=== PATIENT | female | born 1990 | race African-American/Black ===

== ENCOUNTER 2017-11-11 21:19 | Observation (INO) | payer MEDICAID ==
[~2017-11-11] VITALS: Ht 160 cm; Wt 93.0 kg
[2017-11-11] MEDS ORDERED: ACET-2708 MT (22:04)
[2017-11-11] MEDS ORDERED: PENI500T PO (22:04)
== END 2017-11-11 23:00 | disposition home or self-care (01) ==
LOC: L&D 21:19
PROVIDERS: ADMIT Obstetrics & Gynecology; ATTEND Obstetrics & Gynecology
DX: O62.9 Abnormality of forces of labor, unspecified (principal); Z3A.39 39 weeks gestation of pregnancy
CPT/HCPCS: G0378 ×2

== ENCOUNTER 2017-11-24 03:06 | Inpatient (IN) | payer MEDICAID ==
[~2017-11-24] VITALS: Ht 157.5 cm; Wt 93.0 kg
[~2017-11-24 03:06] MED LIST: ACET-2708 MT; PENI500T PO
[2017-11-24] MEDS ORDERED: DEXT 5%/LR + PITOCIN 20UNITS/L 1,000 ML IV SCH ×2 (03:33→07:34)
[2017-11-24] MEDS ORDERED: LACTATED RINGERS 1,000 ML IV SCH (03:33)
[2017-11-24] MEDS ORDERED: NALOXONE HCL 0.4 MG/ML 1ML VIAL IM PRN (03:45)
[2017-11-24] MEDS ORDERED: BUTORPHANOL TARTRATE 2 MG/ML VIAL IV PRN (03:45)
[2017-11-24] MEDS ORDERED: CARBOPROST TROMETHAMINE 250 MCG/ML AMPUL IM PRN (03:45)
[2017-11-24] MEDS ORDERED: LIDOCAINE HCL 1% 20ML VIAL (Pyxis) INJ INFIL SCH (03:45)
[2017-11-24] MEDS ORDERED: METHYLERGONOVINE MALEATE 0.2 MG/ML IM PRN (03:45)
[2017-11-24] MEDS ORDERED: AMPICILLIN 2,000 MG in SODIUM CHLORIDE 0.9% 100 ML IV SCH (04:30)
[2017-11-24 04:33] LABS: BASOPHILS % 0.2 % (0.0-2.0); EOSINOPHILS % 0.5 % (0.0-5.0); HEMATOCRIT. 40.1 % (36.0-48.0); LYMPHOCYTES % 20.9 % (20.0-50.0); MEAN CORPUSCULAR HEMOGLOBIN 26.4 pg (28.0-32.0); MEAN CORPUSCULAR VOLUME 81.2 fL (81.0-99.0); MEAN PLATELET VOLUME 9.3 fl (7.4-10.4); MONOCYTES % 4.4 % (2.0-8.0); PLATELET 251 x1000/uL (130-400); RED BLOOD CELL COUNT 4.94 mill/uL (4.2-5.4); RED CELL DISTRIBUTION WIDTH 17.5 % (11.6-14.6)
[2017-11-24 04:36] LABS: CLARITY URINE CLEAR (CLEAR); COLOR URINE YELLOW (YELLOW); KETONES URINE NEGATIVE (NEGATIVE); LEUKOCYTE ESTERASE URINE TRACE (NEGATIVE); NITRITE URINE NEGATIVE (NEGATIVE); OCCULT BLOOD URINE NEGATIVE (NEGATIVE); PROTEIN URINE NEGATIVE (NEGATIVE); SPECIFIC GRAVITY URINE 1.017 (1.005-1.030)
[2017-11-24 04:38] LABS: PARTIAL THROMBOPLASTIN TIME 26.6 sec (23.4-31.0); PROTHROMBIN TIME 9.6 sec (9.1-11.1)
[2017-11-24 05:46] LABS: *AMPHETAMINES SCREEN URINE NEGATIVE (NEGATIVE); *BARBITURATES SCREEN URINE NEGATIVE (NEGATIVE); *BENZODIAZEPINES SCREEN URINE NEGATIVE (NEGATIVE); *COCAINE SCREEN URINE NEGATIVE (NEGATIVE)
[2017-11-24 05:47] LABS: CANNABINOID URINE SCREEN NEGATIVE (NEGATIVE); METHADONE URINE SCREEN NEGATIVE (NEGATIVE); OPIATES URINE SCREEN NEGATIVE (NEGATIVE); PHENCYCLIDINE URINE SCREEN NEGATIVE (NEGATIVE)
[2017-11-24 07:10] LABS: HEPATITIS B SURFACE ANTIGEN NEGATIVE; RUBELLA IGG 256.4 IU/mL (4.99-10)
[2017-11-24] MEDS ORDERED: RHO(D) IMMUNE GLOBULIN 300 MCG/SYR IM PRN (07:45)
[2017-11-24] MEDS ORDERED: ACETAMINOPHEN WITH CODEINE 300/30MG TABLET PO PRN (07:45)
[2017-11-24] MEDS ORDERED: IBUPROFEN 400MG TABLET PO PRN (07:45)
[2017-11-24 09:00] VITALS: BP 110/62
[2017-11-24 09:30] VITALS: BP 120/66
[2017-11-24] MEDS: IBUPROFEN 800MG TABLET PO PRN ×2 (10:21→16:20)
[2017-11-24] MEDS ORDERED: AMPICILLIN 1,000 MG in SODIUM CHLORIDE 0.9% 50 ML IV SCH (11:00)
[2017-11-24 16:00] VITALS: BP 106/76
[2017-11-24 20:00] VITALS: BP 109/74
[2017-11-25 07:12] LABS: BASOPHILS % 0.1 % (0.0-2.0); EOSINOPHILS % 0.5 % (0.0-5.0); HEMATOCRIT. 34.7 % (36.0-48.0); HEMOGLOBIN. 11.5 g/dL (12.0-16.0); LYMPHOCYTES % 20.2 % (20.0-50.0); MEAN CORPUSCULAR HEMOGLOBIN 26.9 pg (28.0-32.0); MEAN CORPUSCULAR VOLUME 81.1 fL (81.0-99.0); MEAN PLATELET VOLUME 9.5 fl (7.4-10.4); NEUTROPHILS % 74.2 % (40.0-76.0); PLATELET 210 x1000/uL (130-400); RED BLOOD CELL COUNT 4.27 mill/uL (4.2-5.4); RED CELL DISTRIBUTION WIDTH 17.3 % (11.6-14.6)
[2017-11-25 08:20] VITALS: BP 108/69
[2017-11-25] MEDS: IBUPROFEN 800MG TABLET PO PRN ×2 (08:33→15:55)
[2017-11-25 22:00] VITALS: BP 107/71
[2017-11-26 07:30] VITALS: BP 126/61
== END 2017-11-26 14:30 | disposition home or self-care (01) | DRG 560 ==
LOC: OBSVTOIN 03:06 → L&D 03:06 → 7EST PP/OB 08:52
PROVIDERS: ADMIT Obstetrics & Gynecology; ATTEND Obstetrics & Gynecology
PROC: 10E0XZZ Delivery of Products of Conception, External Approach (ICD-10-PCS; principal; 2017-11-24 06:05)
DX: O80 Encounter for full-term uncomplicated delivery (principal); Z37.0 Single live birth; Z3A.39 39 weeks gestation of pregnancy
CPT/HCPCS: 36415; 80305; 81003; 85025; 85610; 85730; 86592; 86703; 86762; 86850; 86900; 87340; C1893; J0290; J0595; J2590; J7120